=== PATIENT | female | born 1990 | race Caucasian/White ===

== ENCOUNTER 2024-04-06 12:56 | Emergency (ER) | payer BC ==
[~2024-04-06] VITALS: Ht 170.2 cm; Wt 99.8 kg
[2024-04-06 13:03] VITALS: O2SAT 100
[2024-04-06] MEDS: ACETAMINOPHEN 325MG TABLET PO ONE (15:11)
[2024-04-06] MEDS: KETOROLAC 30MG/ML VIAL IM ONE (15:12)
[2024-04-06] MEDS: BACITRACIN ZINC OINT UDPKT TOP ONE ×2 (15:12→15:14)
[2024-04-06] MEDS: LIDOCAINE HCL/EPINEPHRINE 1%-EPI 1:100,000 20 ML VIAL INFIL ONE (15:13)
[2024-04-06] MEDS: ACETAMINOPHEN 325MG TABLET PO NR (15:14)
[2024-04-06] MEDS: KETOROLAC 30MG/ML VIAL IM NR (15:14)
[2024-04-06] MEDS: BACITRACIN ZINC OINT UDPKT TOP NR (15:15)
[2024-04-06] MEDS: LIDOCAINE HCL/EPINEPHRINE 1%-EPI 1:100,000 20 ML VIAL INFIL NR (15:19)
[2024-04-06] MEDS ORDERED: CEPH500C2 MT (16:54)
[2024-04-06] MEDS ORDERED: BO1 TP (16:54)
[2024-04-06] MEDS: CEFAZOLIN SODIUM 1000MG/VIAL IM ONE (17:00)
[2024-04-06 18:12] VITALS: BP 129/87; PULSE 87; RESP 18; TEMP 98.7
== END 2024-04-06 18:19 | disposition home or self-care (01) ==
LOC: ER 12:56
DX: S81.012A Laceration without foreign body, left knee, initial encounter (principal)
CPT/HCPCS: 81025; 73560; 73564; 73590; 12004; 96372; 99284; J0690; J1885; J3490; Z7610 ×2

== ENCOUNTER 2024-09-15 14:19 | Emergency (ER) | payer BC, OTHER ==
[~2024-09-15] VITALS: Ht 170.2 cm; Wt 104.0 kg
[~2024-09-15 14:19] MED LIST: BO1 TP; CEPH500C2 MT
[2024-09-15 14:25] VITALS: O2SAT 99
[2024-09-15 14:38] VITALS: BP 114/69; PULSE 82; RESP 18; TEMP 98.4; O2SAT 99
[2024-09-15 14:59] LABS: CLARITY URINE CLEAR (CLEAR); COLOR URINE YELLOW (YELLOW); GLUCOSE URINE NEGATIVE (NEGATIVE); KETONES URINE NEGATIVE (NEGATIVE); LEUKOCYTE ESTERASE URINE NEGATIVE (NEGATIVE); NITRITE URINE NEGATIVE (NEGATIVE); OCCULT BLOOD URINE 3+ (NEGATIVE); PROTEIN URINE NEGATIVE (NEGATIVE); SPECIFIC GRAVITY URINE 1.008 (1.005-1.030); UROBILINOGEN URINE 0.2 E.U./dL (0.2-1.0)
[2024-09-15 15:10] LABS: BACTERIA URINE 1+; SQUAMOUS EPITHELIAL CELL URINE 2+ /lpf (RARE/1+); WBC URINE 0-2 /hpf (0-2)
[2024-09-15 15:12] LABS: BASOPHILS % 0.5 % (0.0-2.0); EOSINOPHILS % 1.7 % (0.0-5.0); HEMATOCRIT. 42.5 % (36.0-48.0); HEMOGLOBIN. 14.5 g/dL (12.0-16.0); LYMPHOCYTES % 22.9 % (20.0-50.0); MEAN CORPUSCULAR HEMOGLOBIN 32.6 pg (28.0-32.0); MEAN CORPUSCULAR HGB CONC 34.1 g/dL (31.0-37.0); MEAN CORPUSCULAR VOLUME 95.9 fL (81.0-99.0); MEAN PLATELET VOLUME 9.2 fl (7.4-10.4); MONOCYTES % 8.1 % (2.0-8.0); NEUTROPHILS % 66.8 % (40.0-76.0); PLATELET 212 x1000/uL (130-400); RED BLOOD CELL COUNT 4.43 mill/uL (4.2-5.4); RED CELL DISTRIBUTION WIDTH 12.7 % (11.6-14.6); WHITE BLOOD COUNT 9.5 x1000/uL (4.5-11.0)
[2024-09-15 15:18] LABS: CARBON DIOXIDE 25 mEq/L (21-32); CHLORIDE 104 mEq/L (98-107); POTASSIUM 3.5 mEq/L (3.5-5.1); SODIUM 137 mEq/L (136-145)
[2024-09-15 15:19] LABS: CALCIUM 9.2 mg/dL (8.7-10.4)
[2024-09-15 15:24] LABS: CREATININE 0.7 mg/dL (0.6-1.0); GLUCOSE 82 mg/dL (70-105); UREA NITROGEN BLOOD 10 mg/dL (9-23)
[2024-09-15 15:44] LABS: B-HCG QUANTITATIVE 93842 mIU/mL (<3)
[2024-09-15] MEDS ORDERED: TOPUD MT (17:34)
[2024-09-15] MEDS ORDERED: NITR-87 MT (17:34)
== END 2024-09-15 17:45 | disposition home or self-care (01) ==
LOC: ER 14:19
DX: O20.0 Threatened abortion (principal); Z3A.08 8 weeks gestation of pregnancy
CPT/HCPCS: 36415; 76801; 80048; 81003; 84702; 85025; 99284

== ENCOUNTER → 2024-11-11 | Outpatient (CLI) | payer BC, OTHER ==
[~2024-11-11] MED LIST changes: +NITR-87 MT; +TOPUD MT
== END | disposition home or self-care (01) ==
LOC: US 08:22
PROVIDERS: ATTEND Obstetrics & Gynecology
DX: Z34.02 Encounter for supervision of normal first pregnancy, second trimester (principal); Z3A.17 17 weeks gestation of pregnancy
CPT/HCPCS: 76805

== ENCOUNTER 2024-12-24 07:16 | Emergency (ER) | payer BC, OTHER ==
[~2024-12-24] VITALS: Ht 170.2 cm; Wt 115.0 kg
[2024-12-24 08:23] LABS: BASOPHILS % 0.5 % (0.0-2.0); EOSINOPHILS % 0.5 % (0.0-5.0); HEMATOCRIT. 37.1 % (36.0-48.0); HEMOGLOBIN. 12.7 g/dL (12.0-16.0); LYMPHOCYTES % 9.6 % (20.0-50.0); MEAN CORPUSCULAR HEMOGLOBIN 32.6 pg (28.0-32.0); MEAN CORPUSCULAR HGB CONC 34.1 g/dL (31.0-37.0); MEAN CORPUSCULAR VOLUME 95.5 fL (81.0-99.0); MEAN PLATELET VOLUME 9.9 fl (7.4-10.4); MONOCYTES % 4.6 % (2.0-8.0); NEUTROPHILS % 84.8 % (40.0-76.0); PLATELET 181 x1000/uL (130-400); RED BLOOD CELL COUNT 3.88 mill/uL (4.2-5.4); RED CELL DISTRIBUTION WIDTH 13.6 % (11.6-14.6); WHITE BLOOD COUNT 12.7 x1000/uL (4.5-11.0)
[2024-12-24 08:31] LABS: CHLORIDE 109 mEq/L (98-107); POTASSIUM 3.4 mEq/L (3.5-5.1); SODIUM 137 mEq/L (136-145)
[2024-12-24 08:32] LABS: CALCIUM 9.4 mg/dL (8.7-10.4); CARBON DIOXIDE 21 mEq/L (21-32)
[2024-12-24 08:37] LABS: CREATININE 0.5 mg/dL (0.6-1.0); GLUCOSE 149 mg/dL (70-105); UREA NITROGEN BLOOD 7 mg/dL (9-23)
[2024-12-24 08:39] LABS: ALANINE AMINOTRANSFERASE 33 IU/L (10-49); ALBUMIN 3.6 g/dL (3.2-4.8); ASPARTATE AMINOTRANSFERASE 18 IU/L (<34); BILIRUBIN DIRECT 0.1 mg/dL (<=3.0); BILIRUBIN TOTAL 0.5 mg/dL (0.1-1.0); PROTEIN TOTAL 6.4 g/dL (6.0-8.3)
[2024-12-24 08:40] LABS: CLARITY URINE CLEAR (CLEAR); COLOR URINE YELLOW (YELLOW); GLUCOSE URINE TRACE (NEGATIVE); KETONES URINE NEGATIVE (NEGATIVE); LEUKOCYTE ESTERASE URINE 1+ (NEGATIVE); NITRITE URINE NEGATIVE (NEGATIVE); OCCULT BLOOD URINE 2+ (NEGATIVE); PH URINE 6.5 (4.5-8.0); PROTEIN URINE NEGATIVE (NEGATIVE); SPECIFIC GRAVITY URINE 1.006 (1.005-1.030); UROBILINOGEN URINE 0.2 E.U./dL (0.2-1.0)
[2024-12-24 08:56] LABS: B-HCG QUANTITATIVE 9682 mIU/mL (<6)
[2024-12-24 09:04] LABS: SQUAMOUS EPITHELIAL CELL URINE RARE /lpf (RARE/1+)
[2024-12-24 09:05] LABS: BACTERIA URINE TRACE
[2024-12-24 09:06] LABS: RBC URINE 0-2 /hpf (0-2); WBC URINE 0-2 /hpf (0-2)
[2024-12-24] MEDS: ACETAMINOPHEN 325MG TABLET PO STA (10:03)
[2024-12-24] MEDS: SODIUM CHLORIDE 0.9% 100 ML IV ONE (11:20)
[2024-12-24] MEDS ORDERED: OXYTOCIN 30 UNITS/500ML NS 500 ML IV ONE (11:30)
[2024-12-24] MEDS ORDERED: MORPHINE SULFATE 2 MG/ML INJ (NOT FOR IM USE) IV ONE (11:44)
[2024-12-24] MEDS: MORPHINE SULFATE 2 MG/ML INJ (NOT FOR IM USE) IV NR (11:45)
[2024-12-24 11:50] VITALS: O2SAT 97
[2024-12-24] MEDS: MORPHINE SULFATE 2 MG/ML INJ (NOT FOR IM USE) IV ONE (12:00)
[2024-12-24 12:16] VITALS: BP 144/65; PULSE 89; RESP 13; TEMP 36.4; O2SAT 99
== END 2024-12-24 12:33 | disposition short-term general hospital (02) ==
LOC: ER 07:16
DX: O26.892 Other specified pregnancy related conditions, second trimester (principal); O46.92 Antepartum hemorrhage, unspecified, second trimester; N89.8 Other specified noninflammatory disorders of vagina; Z3A.23 23 weeks gestation of pregnancy
CPT/HCPCS: 99291; 96374; 76805; 96361; 80076; 80048; 81003; 81025; 84702; 85025; 86850; 86900; 86901; 36415; 76815; J2270; J7050; J2590

== ENCOUNTER → 2025-01-28 | Outpatient (CLI) | payer BC, MEDICAID ==
[~2025-01-28] MED LIST changes: +IOHEXOL-300 100 ML BOTTLE ONE
== END | disposition home or self-care (01) ==
LOC: CT 09:58
PROVIDERS: ATTEND Obstetrics & Gynecology
DX: R10.2 Pelvic and perineal pain (principal); R10.30 Lower abdominal pain, unspecified
CPT/HCPCS: 74178; Q9967; Z7610

== ENCOUNTER 2025-02-16 16:51 | Emergency (ER) | payer BC, MEDICAID ==
[~2025-02-16] VITALS: Ht 172.7 cm; Wt 114.0 kg
[~2025-02-16 16:51] MED LIST changes: -IOHEXOL-300 100 ML BOTTLE ONE
[2025-02-16 16:57] VITALS: O2SAT 99
[2025-02-16 17:07] VITALS: TEMP 36.8
[2025-02-16 18:32] VITALS: BP 118/69; PULSE 94; RESP 20
[2025-02-16] MEDS: HYDROCODONE/ACETAMINOPHEN 5/325MG TABLET PO ONE (18:32)
[2025-02-16] MEDS ORDERED: IBUP-2029 MT (19:33)
[2025-02-16] MEDS ORDERED: HYDR-4001 MT (19:33)
== END 2025-02-16 20:30 | disposition home or self-care (01) ==
LOC: ER 16:51
DX: S83.91XA Sprain of unspecified site of right knee, initial encounter (principal); Z98.890 Other specified postprocedural states; Z79.899 Other long term (current) drug therapy; W19.XXXA Unspecified fall, initial encounter; Y93.89 Activity, other specified; Y92.89 Other specified places as the place of occurrence of the external cause; Y99.8 Other external cause status
CPT/HCPCS: 29505; 73560; 99283

== ENCOUNTER → 2025-02-27 | Outpatient (CLI) | payer BC ==
[~2025-02-27] MED LIST changes: +HYDR-4001 MT; +IBUP-2029 MT
== END | disposition home or self-care (01) ==
LOC: MRI 12:48
DX: S83.241D Other tear of medial meniscus, current injury, right knee, subsequent encounter (principal); S83.281D Other tear of lateral meniscus, current injury, right knee, subsequent encounter; S83.511D Sprain of anterior cruciate ligament of right knee, subsequent encounter; S80.01XD Contusion of right knee, subsequent encounter; M25.561 Pain in right knee; M25.461 Effusion, right knee; R60.0 Localized edema; R93.7 Abnormal findings on diagnostic imaging of other parts of musculoskeletal system; X58.XXXD Exposure to other specified factors, subsequent encounter
CPT/HCPCS: 73721

== ENCOUNTER → 2025-03-04 | Outpatient (CLI) | payer BC | END | disposition home or self-care (01) | LOC: US 11:00 | PROVIDERS: ATTEND Obstetrics & Gynecology | DX: N28.89 Other specified disorders of kidney and ureter (principal); R93.89 Abnormal findings on diagnostic imaging of other specified body structures; N92.6 Irregular menstruation, unspecified | CPT/HCPCS: 76830; 76856 ==

== ENCOUNTER → 2025-03-26 | Outpatient (CLI) | payer BC, MEDICAID ==
[~2025-03-26] MED LIST changes: +ASPI-1497 PO
== END | disposition home or self-care (01) ==
LOC: CARD 09:13
DX: Z01.818 Encounter for other preprocedural examination (principal)
CPT/HCPCS: 71046; 93005

== ENCOUNTER → 2025-03-28 | Day surgery (SDC) | payer BC, MEDICAID ==
[~2025-03-28] VITALS: Ht 172.7 cm; Wt 115.7 kg
[~2025-03-28] MED LIST changes: +ACETAMINOPHEN 1,000MG/100ML PREMIX IV PRN; +ACETAMINOPHEN 1000MG/100ML 100 ML IV ONE; +BACITRACIN 14GM TUBE TOP ONE; +BUPIVACAINE HCL/PF 0.5% (5MG/ML) 10ML ONE; +DEXT 5%/0.45% NACL KCL 20MEQ/L 1,000 ML IV SCH; +EPINEPHRINE 1:1000 1 MG/ML AMP ONE; +FAMOTIDINE 20MG/2ML VIAL IV ONE; +FAMOTIDINE 20MG/2ML VIAL IV PRN; +FENTANYL CITRATE/PF 50MCG/ML 2ML VIAL ONE; +HYDRALAZINE 20MG/ML VIAL IV PRN; +HYDROCODONE/ACETAMINOPHEN 5/325MG TABLET PO PRN; +LABETALOL 5MG/ML 4ML INJ IV PRN; +LACTATED RINGERS 1,000 ML IV SCH; +LIDOCAINE HCL 1% 20ML VIAL ONE; +LIDOCAINE HCL/EPINEPHRINE 1%-EPI 1:100,000 20ML VIAL ONE; +MEPERIDINE HCL/PF 25MG/ML CPJ IV PRN; +MIDAZOLAM HCL 2 MG/2 ML VIAL ONE; +MORPHINE SULFATE 4 MG/ML INJ (FOR IV/IM USE) IV PRN; +NALOXONE HCL 0.4MG/ML VIAL IV PRN; +ONDANSETRON HCL 4MG/2ML INJ IV PRN; +POLYMYXIN B SULFATE 500000 UNITS/VIAL ONE; +PROPOFOL 200MG/20ML VIAL IV ONE; +ROPIVACAINE HCL 1% 20 ML VIAL EPI ONE; +SKIN ADHESIVE 0.7 GM EA TOP ONE; +SODIUM CHLORIDE 0.9% 3ML FLUSH IVF SCH
[2025-03-28 06:51] LABS: CLARITY URINE CLEAR (CLEAR); COLOR URINE YELLOW (YELLOW); GLUCOSE URINE NEGATIVE (NEGATIVE); KETONES URINE NEGATIVE (NEGATIVE); LEUKOCYTE ESTERASE URINE NEGATIVE (NEGATIVE); NITRITE URINE NEGATIVE (NEGATIVE); OCCULT BLOOD URINE 2+ (NEGATIVE); PH URINE 5.5 (4.5-8.0); PROTEIN URINE NEGATIVE (NEGATIVE); SPECIFIC GRAVITY URINE 1.017 (1.005-1.030); UROBILINOGEN URINE 0.2 E.U./dL (0.2-1.0)
[2025-03-28 06:59] LABS: INR 0.9
[2025-03-28 07:13] LABS: SQUAMOUS EPITHELIAL CELL URINE FEW /lpf (RARE/1+)
[2025-03-28 07:14] LABS: RBC URINE 0-2 /hpf (0-2); WBC URINE 0-2 /hpf (0-2)
[2025-03-28 07:15] LABS: BACTERIA URINE NONE SEEN; UCG KIT EXPIRATION DATE 11-27-26; UCG KIT LOT# 0000946166; UCG SCREEN NEGATIVE
[2025-03-28 10:17] VITALS: BP 125/81; PULSE 83; RESP 19
[2025-03-28] MEDS: HYDROMORPHONE HCL/PF 1MG/ML INJ IV PRN (10:17)
== END | disposition home or self-care (01) ==
LOC: OR 06:18
DX: S83.241A Other tear of medial meniscus, current injury, right knee, initial encounter (principal); S83.281A Other tear of lateral meniscus, current injury, right knee, initial encounter; S83.411A Sprain of medial collateral ligament of right knee, initial encounter; S83.511A Sprain of anterior cruciate ligament of right knee, initial encounter; Z79.899 Other long term (current) drug therapy; Z98.890 Other specified postprocedural states; Z79.82 Long term (current) use of aspirin; Z79.01 Long term (current) use of anticoagulants; Z88.8 Allergy status to other drugs, medicaments and biological substances; X58.XXXA Exposure to other specified factors, initial encounter; Y93.89 Activity, other specified; Y92.89 Other specified places as the place of occurrence of the external cause; Y99.8 Other external cause status
CPT/HCPCS: 29882; 97161; 29881; 88305; 97116; 81003; 81025; 82962; 85610; 85730; 36415; 88311; 29888; J3010; J0665; J3490 ×2; J1308; J2004; J2003; J2250; J2704; J2795; J1171; J7030; J7120; C1713; J0131